=== PATIENT | female | born 1960 | race Caucasian/White ===

== ENCOUNTER 2021-11-22 12:49 | Emergency (ER) | payer OTHER ==
[2021-11-22 13:43] LABS: #Basophils 0.1 10x3/uL (0.0-0.2); #Eosinphils 0.2 10x3/uL (0.0-0.5); #Monocytes 1.1 10x3/uL (0.0-1.1); #Neutrophils 6.9 10x3/uL (1.5-8.4); %Basophils 0.5 % (0.0-2.0); %Lymphocytes 20.7 % (18.0-47.0); %Monocytes 10.2 % (0.0-10.0); %Neutrophils 66.1 % (40.0-75.0); Hemoglobin 12.1 g/dL (12.0-15.5); Mean Corpuscular HGB CONC 31.5 g/dL (32.0-36.0); Mean Corpuscular Hemoglobin 30.3 pg (27.0-33.0); Mean Corpuscular Volume 96.2 fl (81.6-98.3); Mean Platelet Volume 9.1 fl (7.4-10.4); Platelet Count 247 10x3/uL (150-450); RBC Distribution Width 12.8 % (11.5-14.5); Red Blood Cell (RBC) Count 3.99 10x6/uL (3.90-5.03); White Blood Cell (WBC) Count 10.4 10x3/uL (3.5-10.5)
[2021-11-22 13:54] LABS: ALT (SGPT) 37 U/L (8-55); AST (SGOT) 32 U/L (5-34); Alkaline Phosphatase 100 U/L (40-110); Anion Gap 11 mmol/L (10-20); BUN (Urea Nitrogen) 14 mg/dL (9.8-20.1); Bilirubin, Total 0.3 mg/dL (0.2-1.2); Calc. Creatinine Clearance 0 mL/min (70-130); Calcium 9.5 mg/dL (7.8-10.44); Carbon Dioxide 30 mmol/L (22-29); Chloride 104 mmol/L (98-107); Globulin 3.5 g/dL (2.4-3.5); Glucose 96 mg/dL (70-105); Potassium 4.4 mmol/L (3.5-5.1); Protein, Total 7.5 g/dL (6.0-8.3); Sodium 141 mmol/L (136-145)
== END 2021-11-22 14:45 | disposition home or self-care (01) ==
LOC: CSHERS 12:49
DX: R05.9 Cough, unspecified (principal)
CPT/HCPCS: 36415; 71045; 80053; 85025; 93005

== ENCOUNTER 2021-12-06 16:58 | Observation (INO) | payer OTHER ==
[2021-12-06 17:45] LABS: #Eosinphils 0.4 10x3/uL (0.0-0.5); #Monocytes 0.6 10x3/uL (0.0-1.1); #Neutrophils 2.5 10x3/uL (1.5-8.4); %Basophils 0.6 % (0.0-2.0); %Eosinophils 5.7 % (0.0-6.0); %Monocytes 9.9 % (0.0-10.0); %Neutrophils 39.6 % (40.0-75.0); Hemoglobin 11.1 g/dL (12.0-15.5); Mean Corpuscular HGB CONC 31.6 g/dL (32.0-36.0); Mean Corpuscular Hemoglobin 29.8 pg (27.0-33.0); Mean Corpuscular Volume 94.4 fl (81.6-98.3); Mean Platelet Volume 9.4 fl (7.4-10.4); Platelet Count 280 10x3/uL (150-450); RBC Distribution Width 12.4 % (11.5-14.5); Red Blood Cell (RBC) Count 3.72 10x6/uL (3.90-5.03); White Blood Cell (WBC) Count 6.3 10x3/uL (3.5-10.5)
[2021-12-06 18:03] LABS: ALT (SGPT) 16 U/L (8-55); AST (SGOT) 18 U/L (5-34); Alkaline Phosphatase 85 U/L (40-110); Anion Gap 16 mmol/L (10-20); BUN (Urea Nitrogen) 11 mg/dL (9.8-20.1); Bilirubin, Total 0.2 mg/dL (0.2-1.2); Calc. Creatinine Clearance 0 mL/min (70-130); Calcium 9.3 mg/dL (7.8-10.44); Carbon Dioxide 23 mmol/L (22-29); Chloride 106 mmol/L (98-107); Globulin 2.6 g/dL (2.4-3.5); Glucose 109 mg/dL (70-105); Lipase 37 U/L (8-78); Protein, Total 6.6 g/dL (6.0-8.3); Sodium 141 mmol/L (136-145)
[2021-12-06] MEDS ORDERED: Aspirin Chewable 81 MG TAB ONE (18:43)
[2021-12-06] MEDS ORDERED: Ondansetron PF 4 MG/2 ML Vial IVP PRN (19:12)
[2021-12-06] MEDS ORDERED: Zolpidem Tartrate 5 MG TAB PO PRN (19:12)
[2021-12-06] MEDS ORDERED: Senokot S 8.6-50 MG TAB PO PRN (19:12)
[2021-12-06] MEDS ORDERED: Acetaminophen 325 MG TAB PO PRN (19:12)
[2021-12-06] MEDS ORDERED: Calcium Carbonate 500 MG ChewTAB PO PRN (19:12)
[2021-12-06] MEDS ORDERED: Guaifenesin DM 100-10/5 ML UDCUP PO PRN (19:12)
[2021-12-06] MEDS ORDERED: Nitroglycerin 0.4 MG TAB (25 Tab Bottle) SL PRN (19:12)
[2021-12-06] MEDS ORDERED: traZODone HCl 50 MG TAB PO PRN (19:15)
[2021-12-06] MEDS ORDERED: Albuterol 200 PUFF (6.7GM INHALER) INH PRN (19:16)
[2021-12-06 19:54] LABS: Bilirubin Neg (Negative); Blood, Urine 10 (Negative); Clarity Clear (Clear); Glucose, Urine (Dipstick) Normal (Negative); Ketone, Urine Negative (Negative); Leukocyte Negative (Negative); Nitrite Negative (Negative); Protein, Urine (Dipstick) Negative (Neg-Trace); Specific Gravity, Urine 1.015 (1.002-1.036); Urobilinogen Normal mg/dL (Less than 2)
[2021-12-06 20:02] LABS: Bacteria/HPF None Seen HPF (None Seen); RBC/HPF 0-3 HPF (0-3); Squamous Epithelial 0-3 HPF (0-3); WBC/HPF None Seen HPF (0-3)
[2021-12-06] MEDS ORDERED: Famotidine/PF 20 mg/2ml Vial SLOW IVP SCH (20:30)
[2021-12-06] MEDS ORDERED: Atorvastatin Calcium 20 MG TAB PO SCH (21:00)
[2021-12-06] MEDS: Gabapentin 300 MG CAP PO SCH (21:18)
[2021-12-06 21:43] LABS: Troponin I Less than 0.010 ng/mL (< 0.028)
[2021-12-06 22:46] VITALS: BMI 30.2
[2021-12-06 23:53] LABS: Troponin I Less than 0.010 ng/mL (< 0.028)
[2021-12-07] MEDS: HYDROcodone/Acetaminophen 5/325 mg Tablet PO PRN ×3 (01:40→15:02)
[2021-12-07 01:42] LABS: SARS-CoV-2 NAA Rapid Test Not Detected (NotDetected)
[2021-12-07 05:01] LABS: Cardiac Risk 2.9 (Less than 4.5)
[2021-12-07] MEDS ORDERED: Aspirin Chewable 81 MG TAB PO SCH (09:00)
[2021-12-07] MEDS ORDERED: Minoxidil 2.5 MG TAB PO SCH (09:00)
[2021-12-07] MEDS ORDERED: Famotidine 20 MG TAB PO SCH (09:00)
[2021-12-07] MEDS ORDERED: Enoxaparin Sodium 40 MG/0.4 ML SYRINGE SC SCH (09:00)
[2021-12-07] MEDS ORDERED: Bupropion 150 MG SR TAB PO SCH (09:00)
[2021-12-07] MEDS: Gabapentin 300 MG CAP PO SCH (09:31)
[2021-12-07 16:54] VITALS: BP 111/56; TEMP 97
== END 2021-12-07 18:41 | disposition home or self-care (01) ==
LOC: CSHERS 16:58 → CSHTELE 20:22
PROVIDERS: ADMIT Student in an Organized Health Care Education/Training Program; ATTEND Family Medicine
DX: R07.89 Other chest pain (principal); G89.4 Chronic pain syndrome; R10.9 Unspecified abdominal pain; F32.A Depression, unspecified; E78.5 Hyperlipidemia, unspecified; G47.00 Insomnia, unspecified; C85.90 Non-Hodgkin lymphoma, unspecified, unspecified site; E66.9 Obesity, unspecified; Z79.899 Other long term (current) drug therapy; L65.9 Nonscarring hair loss, unspecified; N18.2 Chronic kidney disease, stage 2 (mild); Z20.822 Contact with and (suspected) exposure to COVID-19
CPT/HCPCS: 36415; 71045; 71275; 74174; 80053; 80061; 81003; 81015; 83690; 84484; 85025; 93005; 93010; 93306; 96372; 96374; G0378; J1650; S0028; U0002

== ENCOUNTER 2022-02-12 08:46 | Outpatient (CLI) | payer OTHER ==
[2022-02-12 19:51] LABS: SARS-CoV-2 PCR by NAA Not Detected (NotDetected)
== END 2022-02-12 08:47 | disposition home or self-care (01) ==
LOC: CSHLAB 08:46
PROVIDERS: ATTEND Internal Medicine Gastroenterology
DX: Z20.822 Contact with and (suspected) exposure to COVID-19 (principal)
CPT/HCPCS: U0003; U0005

== ENCOUNTER 2022-02-15 06:24 | Day surgery (SDC) | payer OTHER ==
[2022-02-13 13:30] VITALS: BMI 30.9
[2022-02-15] MEDS ORDERED: Lidocaine 1% MPF 2 ML VIAL ONE (07:48)
[2022-02-15] MEDS ORDERED: PROPOFOL 20 ML ONE ×4 (08:27→09:28)
[2022-02-15] MEDS ORDERED: Fentanyl 100 MCG/2 ML VIAL ONE (08:27)
[2022-02-15] MEDS ORDERED: Midazolam HCl 2 mg/2 ml Vial ONE (10:05)
== END 2022-02-15 10:36 | disposition home or self-care (01) ==
LOC: CSHSDC 06:24
PROVIDERS: ATTEND Internal Medicine Gastroenterology
PROC: 0DJD8ZZ Inspection of Lower Intestinal Tract, Via Natural or Artificial Opening Endoscopic (ICD-10-PCS; principal; 2022-02-15)
PROC: 0DB68ZZ Excision of Stomach, Via Natural or Artificial Opening Endoscopic (ICD-10-PCS; principal; 2022-02-15)
DX: Z12.11 Encounter for screening for malignant neoplasm of colon (principal); R13.10 Dysphagia, unspecified; K31.7 Polyp of stomach and duodenum; K21.00 Gastro-esophageal reflux disease with esophagitis, without bleeding; K64.9 Unspecified hemorrhoids; Q43.8 Other specified congenital malformations of intestine; K44.9 Diaphragmatic hernia without obstruction or gangrene; K29.70 Gastritis, unspecified, without bleeding; K22.2 Esophageal obstruction; E66.9 Obesity, unspecified
CPT/HCPCS: 88305; J2250; J2704; J3010

== ENCOUNTER 2022-02-16 13:01 | Outpatient (CLI) | payer OTHER | END 2022-02-16 13:02 | disposition home or self-care (01) | LOC: CSHRAD 13:01 | PROVIDERS: ATTEND Internal Medicine Gastroenterology | DX: R50.9 Fever, unspecified (principal); R05.9 Cough, unspecified; R91.8 Other nonspecific abnormal finding of lung field | CPT/HCPCS: 71046 ==

== ENCOUNTER 2022-04-26 11:01 | Emergency (ER) | payer OTHER | END 2022-04-26 12:20 | disposition home or self-care (01) | LOC: CSHERS 11:01 | DX: S93.501A Unspecified sprain of right great toe, initial encounter (principal); S80.02XA Contusion of left knee, initial encounter; W01.0XXA Fall on same level from slipping, tripping and stumbling without subsequent striking against object, initial encounter ==

== ENCOUNTER 2024-03-30 13:27 | Outpatient (CLI) | payer BC | END 2024-03-30 13:28 | disposition home or self-care (01) | LOC: CSHMAMMO 13:27 | PROVIDERS: ATTEND Specialist | DX: Z12.31 Encounter for screening mammogram for malignant neoplasm of breast (principal); Z85.72 Personal history of non-Hodgkin lymphomas; Z98.890 Other specified postprocedural states | CPT/HCPCS: 77063; 77067 ==